=== PATIENT | female | born 1995 ===

== ENCOUNTER 2021-02-05 00:53 | Inpatient (IN) | payer OTHER ==
[2021-02-05] MEDS ORDERED: Ondansetron 4 MG/2 ML SDV IVPUSH PRN (05:10)
[2021-02-05] MEDS ORDERED: Tranexamic Acid 1,000 MG in Sodium Chloride 0.9% 100 ML IV PRN (05:10)
[2021-02-05] MEDS ORDERED: Sodium Chloride 0.9% 10 ML Syringe FLUSH PRN (05:10)
[2021-02-05] MEDS ORDERED: Sodium Chloride 0.9% 2.5 ML Syringe FLUSH PRN (05:10)
[2021-02-05] MEDS ORDERED: Sodium Chloride 0.9% 10 ML SDV IV PRN (05:10)
[2021-02-05] MEDS ORDERED: Carboprost Tromethamine 250 MCG/1 ML Amp IM PRN (05:10)
[2021-02-05] MEDS ORDERED: Misoprostol 200 MCG Tab PO PRN (05:10)
[2021-02-05] MEDS ORDERED: Water For Irrigation,Sterile 1,000 ML Container IRR PRN (05:10)
[2021-02-05] MEDS ORDERED: Methylergonovine 0.2 MG/1 ML Amp IM PRN (05:10)
[2021-02-05] MEDS ORDERED: Nalbuphine 10 MG/1 ML Vial IVPUSH PRN (05:10)
[2021-02-05] MEDS ORDERED: Lidocaine 1% 50 ML MDV INJECT PRN (05:10)
[2021-02-05] MEDS ORDERED: Dinoprostone 10 MG Insert VAG PRN (05:13)
[2021-02-05] MEDS ORDERED: Terbutaline 1 MG/ML SDV SUBCUT PRN (05:13)
[2021-02-05] MEDS ORDERED: Oxytocin/0.9 % Sodium Chloride 30 UNIT/500 ML BAG IV SCH ×2 (05:15)
[2021-02-05] MEDS ORDERED: Lactated Ringers 1,000 ML IV SCH (05:15)
[2021-02-05] MEDS: Butorphanol 1 MG/ML SDV IVPUSH PRN ×2 (22:23→23:36)
[2021-02-06] MEDS ORDERED: Benzocaine/Menthol 20%-0.5% Spray 78 GM Cannister TOP PRN (00:53)
[2021-02-06] MEDS ORDERED: Docusate Sodium 100 MG Cap PO PRN (00:53)
[2021-02-06] MEDS ORDERED: oxyCODONE 5 MG Tab PO PRN (00:53)
[2021-02-06] MEDS ORDERED: Ibuprofen 400 MG Tab PO PRN (00:53)
[2021-02-06] MEDS ORDERED: Bisacodyl 10 MG Supp RECTAL PRN (00:53)
[2021-02-06] MEDS ORDERED: Lanolin 100% Cream 7 GM Tube TOP PRN (00:53)
[2021-02-06] MEDS ORDERED: Witch Hazel Medicated Pads 40/Jar TOP PRN (00:53)
[2021-02-06] MEDS ORDERED: Acetaminophen 500 MG Tab PO PRN (00:53)
--- NOTE | 2021-02-06 01:03 | PCM.DEL ---
L & D Note - General Info Date of Service: 02/06/21 Mother's Due Date: 02/13/21 - Delivery Note Labor: Spontaneous Cervical Ripening Method: Oxytocin, Other (see below) (dinoprostone) Delivery Outcome: Livebirth Infant Delivery Method: Spontaneous Vaginal Delivery-Single Presentation: Left Occiput Anterior (JOVI) Nuchal Cord: None Anesthesia Type: None Amniotic Fluid Description: Clear Episiotomy Type: None Laceration: None Placenta: Intact, Spontaneous Cord: 3 Vessels Estimated Blood Loss: 200 Resuscitation Needed: No : Bulb Syringe, Stimulated Score 1 min: 8 Score 5 min: 9 Delivery Comments (Free Text/Narrative):: Dictation #[id number] - General Info Date of Service: 02/06/21 - Patient Data Weight - Most Recent: 158 lb 14.4 oz Lab Results Last 24 Hours: Laboratory Results - last 24 hr 02/05/21 02/05/21 02/05/21 Range/Units 05:38 05:38 05:48 WBC 10.39 (4.0-11.0) K/uL RBC 4.38 (4.30-5.90) M/uL Hgb 12.2 (12.0-16.0) g/dL Hct 37.6 (36.0-46.0) % MCV 85.8 (80.0-98.0) fL MCH 27.9 (27.0-32.0) pg MCHC 32.4 (31.0-37.0) g/dL RDW Std Deviation 50.4 (28.0-62.0) fl RDW Coeff of Dang 16 H (11.0-15.0) % Plt Count 173 (150-400) K/uL MPV 10.80 (7.40-12.00) fL Nucleated RBC % 0.0 /100WBC Nucleated RBCs # 0 K/uL SARS-CoV-2 RNA (EDUMNDO) NEGATIVE (NEGATIVE) Blood Type A POSITIVE Antibody Screen NEGATIVE Med Orders - Current: Current Medications Butorphanol Tartrate (Butorphanol 1 Mg/Ml Sdv) 1 mg IVPUSH Q1H PRN PRN Reason: Pain (severe 7-10) Last Admin: 02/05/21 23:36 Dose: 1 mg Documented by: Carboprost Tromethamine (Carboprost Tromethamine 250 Mcg/1 Ml Amp) 250 mcg IM ASDIRECTED PRN PRN Reason: Post Hemorrhage Dinoprostone (Dinoprostone 10 Mg Insert) 10 mg VAG ONETIME PRN PRN Reason: Cervical Ripening Last Admin: 02/05/21 06:11 Dose: 10 mg Documented by: Oxytocin/Sodium Chloride (Oxytocin 30 Unit/500 Ml-Ns) 30 unit in 500 mls @ 999 mls/hr IV TITRATE REYNALDO Tranexamic Acid 1,000 mg/ (Sodium Chloride) 110 mls @ 660 mls/hr IV ONETIME PRN PRN Reason: Bleeding Lactated Ringer's (Ringers, Lactated) 1,000 mls @ 150 mls/hr IV ASDIRECTED REYNALDO Last Admin: 02/05/21 19:47 Dose: 150 mls/hr Documented by: Oxytocin/Sodium Chloride (Oxytocin 30 Unit/500 Ml-Ns) 30 unit in 500 mls @ 2 mls/hr IV TITRATE REYNALDO; Protocol Last Titration: 02/05/21 22:23 Dose: 8 munits/min, 8 mls/hr Documented by: Lidocaine HCl (Lidocaine 1% 50 Ml Mdv) 50 ml INJECT ONETIME PRN PRN Reason: Laceration repair Methylergonovine Maleate (Methylergonovine 0.2 Mg/1 Ml Amp) 0.2 mg IM ASDIRECTED PRN PRN Reason: Post Hemorrhage Misoprostol (Misoprostol 200 Mcg Tab) 200 mcg PO ONETIME PRN PRN Reason: Post Hemorrhage Nalbuphine HCl (Nalbuphine 10 Mg/1 Ml Vial) 10 mg IVPUSH Q1H PRN PRN Reason: Pain (severe 7-10) Ondansetron HCl (Ondansetron 4 Mg/2 Ml Sdv) 4 mg IVPUSH Q6H PRN PRN Reason: Nausea/Vomiting Sodium Chloride (Sodium Chloride 0.9% 10 Ml Syringe) 10 ml FLUSH ASDIRECTED PRN PRN Reason: Keep Vein Open Sodium Chloride (Sodium Chloride 0.9% 2.5 Ml Syringe) 2.5 ml FLUSH ASDIRECTED PRN PRN Reason: Keep Vein Open Sodium Chloride (Sodium Chloride 0.9% 10 Ml Sdv) 10 ml IV ASDIRECTED PRN PRN Reason: IV Use Sterile Water (Water For Irrigation,Sterile 1,000 Ml Container) 1,000 ml IRR ASDIRECTED PRN PRN Reason: delivery Terbutaline Sulfate (Terbutaline 1 Mg/Ml Sdv) 0.25 mg SUBCUT ASDIRECTED PRN PRN Reason: Tacysystole - Problem List Review Problem List Initiated/Reviewed/Updated: Yes - My Orders Last 24 Hours: My Active Orders 02/05/21 04:40 Patient Status [ADT] Routine 02/05/21 05:10 Heart Tones [RC] CONTINUOUS Non Stress Test [RC] PER UNIT ROUTINE May Shower [RC] ASDIRECTED Notify Provider [RC] PRN Up ad Silvia [RC] ASDIRECTED Vaginal Exam [RC] PRN Vital Signs [RC] PER UNIT ROUTINE Butorphanol [Stadol] 1 mg IVPUSH Q1H PRN Carboprost Tromethamine [Hemabate DS] 250 mcg IM ASDIRECTED PRN Lidocaine 1% [Xylocaine 1%] 50 ml INJECT ONETIME PRN Methylergonovine [Methergine] 0.2 mg IM ASDIRECTED PRN Nalbuphine [Nubain] 10 mg IVPUSH Q1H PRN Ondansetron [Zofran] 4 mg IVPUSH Q6H PRN Sodium Chloride 0.9% [Normal Saline] 10 ml IV ASDIRECTED PRN Sodium Chloride 0.9% [Saline Flush] 10 ml FLUSH ASDIRECTED PRN Sodium Chloride 0.9% [Saline Flush] 2.5 ml FLUSH ASDIRECTED PRN Tranexamic Acid [Cyklokapron] 1,000 mg Sodium Chloride 0.9% [Normal Saline] 100 ml IV ONETIME Water For Irrigation,Sterile [Sterile Water for Irrigation] 1,000 ml IRR ASDIRECTED PRN miSOPROStoL [Cytotec] 200 mcg PO ONETIME PRN Scalp Electrode [WOMSER] Per Unit Routine Peripheral IV Insertion Adult [OM.PC] Routine Resuscitation Status Routine 02/05/21 05:13 Dinoprostone [Cervidil] 10 mg VAG ONETIME PRN Terbutaline [Brethine] 0.25 mg SUBCUT ASDIRECTED PRN 02/05/21 05:14 Bedrest Bathroom Privileges [RC] ASDIRECTED Communication Order [RC] ASDIRECTED Communication Order [RC] ASDIRECTED Communication Order [RC] ASDIRECTED Notify Provider [RC] PRN Notify Provider [RC] PRN Notify Provider [RC] STAT Oxygen Therapy [RC] ASDIRECTED Vaginal Exam [RC] PRN Vital Signs [RC] PER UNIT ROUTINE 02/05/21 05:15 Lactated Ringers [Ringers, Lactated] 1,000 ml IV ASDIRECTED Oxytocin/0.9 % Sodium Chloride [Oxytocin 30 Unit/500 ML-NS] 30 unit in 500 ml IV TITRATE Oxytocin/0.9 % Sodium Chloride [Oxytocin 30 Unit/500 ML-NS] 30 unit in 500 ml IV TITRATE Medication Administration Instruction [OM.PC] Q3H 02/05/21 05:38 RPR (SYPHILIS SERO) W/ RFLX [REF] Routine 02/06/21 00:53 Patient Status [ADT] Routine May Shower [RC] ASDIRECTED Up ad Silvia [RC] ASDIRECTED Vital Signs [RC] PER UNIT ROUTINE Acetaminophen [Tylenol Extra Strength] 1,000 mg PO Q4H PRN Acetaminophen [Tylenol Extra Strength] 500 mg PO Q4H PRN Benzocaine/Menthol [Dermoplast Pain Relief 20%-0.5% Williams] 78 gm TOP ASDIRECTED PRN Docusate Sodium [Colace] 100 mg PO Q12H PRN Ibuprofen [Motrin] 400 mg PO Q4H PRN Ibuprofen [Motrin] 800 mg PO Q6H PRN Lanolin [Lansinoh HPA] See Dose Instructions TOP ASDIRECTED PRN bisacodyL [Dulcolax] 10 mg RECTAL ONETIME PRN oxyCODONE 5 mg PO Q2H PRN witch Estela [Tucks] 1 pad TOP ASDIRECTED PRN Assess Lochia [WOMSER] Per Unit Routine Assess Uterine Involution [WOMSER] Per Unit Routine Peripheral IV Discontinue [OM.PC] Routine 02/07/21 05:11 HEMOGLOBIN/HEMATOCRIT,HH [HEME] Timed - Assessment Assessment:: 25 year old G2 now P2 s/p spontaneous vaginal delivery - Plan Plan:: Routine cares * Rh positive, rubella immune, GBS negative * PO pain medications ordered PRN * Regular diet as tolerated * Encourage ambulation and fluid intake when able * Plans to breastfeed, nursing assistance PRN growth restriction * Placenta sent to pathology for further evaluation Dispo: stable. Admit to floor, anticipate routine cares.
[2021-02-06] MEDS: Ibuprofen 800 MG Tab PO PRN ×3 (06:16→20:16)
[2021-02-06] MEDS: Acetaminophen 500 MG Tab PO PRN (06:16)
--- NOTE | 2021-02-06 06:36 | OR ---
SURGEON: ANGELICA SALAZAR MD DATE OF PROCEDURE: 02/06/2021 PREOPERATIVE DIAGNOSES: 1. Term intrauterine at 39 weeks 0 days. 2. growth restriction. POSTOPERATIVE DIAGNOSES: 1. Term intrauterine at 39 weeks 0 days. 2. growth restriction. PROCEDURE PERFORMED: Normal spontaneous vaginal delivery. PRIMARY SURGEON: Angelica Salazar MD ANESTHESIA: None. COMPLICATIONS: None noted. ESTIMATED BLOOD LOSS: 200 mL. FINDINGS: Viable female , scores 8 and 9. weight not yet available at time of dictation. Intact perineum. 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 Cervidil was placed vaginally. Approximately 12 hours later, Cervidil was removed and cervical exam was performed. The patient found to be 3 cm dilated and Pitocin was initiated for continued induction of labor. Approximately 3 hours after induction of Pitocin, cervical exam was again performed. The patient noted to be 4 cm dilated, and artificial rupture of membranes was performed. A small amount of clear fluid noted. Labor progressed spontaneously thereafter. At approximately midnight on 02/06/2021, I was notified that the patient was completely dilated and felt the urge to push. DESCRIPTION OF PROCEDURE: Upon arrival to the room, the patient pushed with one contraction and head delivered in occiput anterior position, restituted, LOT. Anterior shoulder delivered easily. No nuchal cord was noted. Posterior shoulder and remaining body were then delivered. The was then placed upon maternal abdomen and evaluated by awaiting nursing staff. After approximately 60 seconds, the umbilical cord was clamped and cut. Arterial, venous, and cord blood gases were then obtained. The placenta then delivered spontaneously shortly thereafter. Inspection of the vagina and perineum was then performed and noted to be intact. Fundal massage was then performed. Fundus noted to be firm and below the umbilicus. Bleeding was light. The patient tolerated the procedure well and was given postoperative care instructions. NYDIA / PITER /[id number] HERB
[2021-02-07] MEDS: Ibuprofen 800 MG Tab PO PRN ×2 (02:26→08:14)
--- NOTE | 2021-02-07 08:48 | PCM.PNPP ---
- General Info Date of Service: 02/07/21 Admission Dx/Problem (Free Text): Subjective Update: Walking about room during rounds. Pain well controlled. Ambulating and voiding without difficulty. Lochia decreasing. Tolerating regular diet. Bottlefeeding baby. - General Info Date of Service: 02/07/21 - Patient Data Vital Signs - Most Recent: Last Vital Signs Temp 97.5 F 02/07/21 08:00 Pulse 71 02/07/21 08:00 Resp 18 02/07/21 08:00 BP 107/72 02/07/21 08:00 Pulse Ox 97 02/07/21 08:00 Weight - Most Recent: 158 lb 14.4 oz Lab Results - Last 24 Hours: Laboratory Results - last 24 hr 02/07/21 Range/Units 04:55 Hgb 11.0 L (12.0-16.0) g/dL Hct 34.7 L (36.0-46.0) % Med Orders - Current: Current Medications Acetaminophen (Acetaminophen 500 Mg Tab) 500 mg PO Q4H PRN PRN Reason: Pain (mild 1-3) Last Admin: 02/06/21 06:16 Dose: 500 mg Documented by: Acetaminophen (Acetaminophen 500 Mg Tab) 1,000 mg PO Q4H PRN PRN Reason: Pain (mild 1-3) Last Admin: 02/07/21 05:59 Dose: 1,000 mg Documented by: Benzocaine/Menthol (Benzocaine/Menthol 20%-0.5% [place] 78 Gm Cannister) 78 gm TOP ASDIRECTED PRN PRN Reason: Perineal Comfort Measure Bisacodyl (Bisacodyl 10 Mg Supp) 10 mg RECTAL ONETIME PRN PRN Reason: Constipation Docusate Sodium (Docusate Sodium 100 Mg Cap) 100 mg PO Q12H PRN PRN Reason: Constipation Emollient Ointment (Lanolin 100% Cream 7 Gm Tube) 0 gm TOP ASDIRECTED PRN PRN Reason: Sore Nipples Ibuprofen (Ibuprofen 400 Mg Tab) 400 mg PO Q4H PRN PRN Reason: Pain (mild 1-3) Ibuprofen (Ibuprofen 800 Mg Tab) 800 mg PO Q6H PRN PRN Reason: Pain (mild 1-3) Last Admin: 02/07/21 08:14 Dose: 800 mg Documented by: Oxycodone HCl (Oxycodone 5 Mg Tab) 5 mg PO Q2H PRN PRN Reason: Pain (severe 7-10) Sodium Chloride (Sodium Chloride 0.9% 10 Ml Syringe) 10 ml FLUSH ASDIRECTED PRN PRN Reason: Keep Vein Open Sodium Chloride (Sodium Chloride 0.9% 2.5 Ml Syringe) 2.5 ml FLUSH ASDIRECTED PRN PRN Reason: Keep Vein Open Sodium Chloride (Sodium Chloride 0.9% 10 Ml Sdv) 10 ml IV ASDIRECTED PRN PRN Reason: IV Use Witch Dorothy (Witch Dorothy Medicated Pads 40/Jar) 1 pad TOP ASDIRECTED PRN PRN Reason: comfort care Discontinued Medications Butorphanol Tartrate (Butorphanol 1 Mg/Ml Sdv) 1 mg IVPUSH Q1H PRN PRN Reason: Pain (severe 7-10) Last Admin: 02/05/21 23:36 Dose: 1 mg Documented by: Carboprost Tromethamine (Carboprost Tromethamine 250 Mcg/1 Ml Amp) 250 mcg IM ASDIRECTED PRN PRN Reason: Post Hemorrhage Dinoprostone (Dinoprostone 10 Mg Insert) 10 mg VAG ONETIME PRN PRN Reason: Cervical Ripening Last Admin: 02/05/21 06:11 Dose: 10 mg Documented by: Oxytocin/Sodium Chloride (Oxytocin 30 Unit/500 Ml-Ns) 30 unit in 500 mls @ 999 mls/hr IV TITRATE REYNALDO Tranexamic Acid 1,000 mg/ (Sodium Chloride) 110 mls @ 660 mls/hr IV ONETIME PRN PRN Reason: Bleeding Lactated Ringer's (Ringers, Lactated) 1,000 mls @ 150 mls/hr IV ASDIRECTED REYNALDO Last Admin: 02/05/21 19:47 Dose: 150 mls/hr Documented by: Oxytocin/Sodium Chloride (Oxytocin 30 Unit/500 Ml-Ns) 30 unit in 500 mls @ 2 mls/hr IV TITRATE REYNALDO; Protocol Last Titration: 02/06/21 00:38 Dose: 500 munits/min, 500 mls/hr Documented by: Lidocaine HCl (Lidocaine 1% 50 Ml Mdv) 50 ml INJECT ONETIME PRN PRN Reason: Laceration repair Methylergonovine Maleate (Methylergonovine 0.2 Mg/1 Ml Amp) 0.2 mg IM ASDIRECTED PRN PRN Reason: Post Hemorrhage Misoprostol (Misoprostol 200 Mcg Tab) 200 mcg PO ONETIME PRN PRN Reason: Post Hemorrhage Nalbuphine HCl (Nalbuphine 10 Mg/1 Ml Vial) 10 mg IVPUSH Q1H PRN PRN Reason: Pain (severe 7-10) Ondansetron HCl (Ondansetron 4 Mg/2 Ml Sdv) 4 mg IVPUSH Q6H PRN PRN Reason: Nausea/Vomiting Sterile Water (Water For Irrigation,Sterile 1,000 Ml Container) 1,000 ml IRR ASDIRECTED PRN PRN Reason: delivery Terbutaline Sulfate (Terbutaline 1 Mg/Ml Sdv) 0.25 mg SUBCUT ASDIRECTED PRN PRN Reason: Tacysystole - Infant Interaction Infant Disposition, : in Room with Family Feeding: Bottle Fed Support Person: Mother, Significant Other - Recovery Exam Fundal Tone: Firm Fundal Level: 2 Fingerbreadths Below Umbilicus Fundal Placement: Midline Lochia Amount: Scant Lochia Color: Rubra/Red Perineum Description: Intact, Minimal Bruising/Swelling Episiotomy/Laceration: None Bladder Status: Voiding - Exam General: Alert Lungs: Normal Respiratory Effort Cardiovascular: Regular Rate GI/Abdominal Exam: Soft, Non-Tender Extremities: Normal Range of Motion, Non-Tender, Pedal Edema (trace) Skin: Warm, Dry, Intact Neurological: No New Focal Deficit Psy/Mental Status: Normal Mood - Problem List Review Problem List Initiated/Reviewed/Updated: Yes - Assessment Assessment:: 25 year old G2 now P2 PPD1 s/p spontaneous vaginal delivery - Plan Plan:: Routine cares * Rh positive, rubella immune, GBS negative * PO pain medications ordered PRN * Regular diet as tolerated * Encourage ambulation and fluid intake when able * Plans to bottlefeeding growth restriction * Placenta sent to pathology for further evaluation Dispo: stable. Anticipate discharge today pending maternal/ status. Reviewed discharge instructions and [facility].
[2021-02-07] MEDS: Acetaminophen 500 MG Tab PO PRN (10:26)
== END 2021-02-07 12:08 | disposition home or self-care (01) | DRG 807 ==
LOC: MW.OB 00:53 → OBSVTOIN 02-06 00:53 → MW.OB 02-06 02:48
PROVIDERS: ADMIT Obstetrics & Gynecology; ATTEND Obstetrics & Gynecology
PROC: 10E0XZZ Delivery of Products of Conception, External Approach (ICD-10-PCS; principal; 2021-02-06)
PROC: 10907ZC Drainage of Amniotic Fluid, Therapeutic from Products of Conception, Via Natural or Artificial Opening (ICD-10-PCS; 2021-02-06)
PROC: 3E033VJ Introduction of Other Hormone into Peripheral Vein, Percutaneous Approach (ICD-10-PCS; 2021-02-06)
PROC: 3E0P7VZ Introduction of Hormone into Female Reproductive, Via Natural or Artificial Opening (ICD-10-PCS; 2021-02-06)
DX: O36.5930 Maternal care for other known or suspected poor fetal growth, third trimester, not applicable or unspecified (principal); Z37.0 Single live birth; Z3A.39 39 weeks gestation of pregnancy; Z20.822 Contact with and (suspected) exposure to COVID-19
CPT/HCPCS: 36415; 59025; 59409; 82803; 85014; 85018; 85027; 86592; 86850; 86900; 86901; 88307; A9270-GY; J0595; J2590; J7120; U0002